=== PATIENT | female | born 1985 | race Asian ===

== ENCOUNTER → 2017-04-27 | Day surgery (SDC) | payer OTHER ==
[~2017-04-27] MED LIST: IRON325 MG
--- NOTE | ~2017-04-27 | OR ---
Unit #: [id number] #: [id number] Patient: RICKEY LOYA [id number] [facility]. [address] [place], [place] [address] [id number] O MR#: [id number] NAME: RICKEY LOYA ROOM: Date of Procedure: 04/27/2017 Admission Date: 04/27/2017 Surgeon: Taiwo Grimes Jr., M.D. : 1985 Attending Physician: Taiwo Grimes Jr., M.D. Primary Care Physician: Bartolo Rodriguez M.D. OPERATIVE REPORT INDICATION FOR THE PROCEDURE The patient is a 31-year-old white male, recently presented to the office complaining of a mass of the right upper medial thigh. This has been enlarging in size and he is concerned about it and desired removal of it. He is brought in at this time for removal of this under local anesthesia. He understands the procedure including the risks, including that of recurrence, infection, poor healing, and consents. PREOPERATIVE DIAGNOSIS Cyst of the right upper medial thigh. POSTOPERATIVE DIAGNOSIS Cyst of the right upper medial thigh, noting what appeared to be a ruptured epidermal cyst with chronic inflammation. ANESTHESIA 1% Xylocaine with epinephrine locally. PROCEDURE PERFORMED Excision of cystic mass of the right upper medial thigh. DESCRIPTION OF PROCEDURE The patient was positioned in supine position after being frog-legged, was prepped and draped in routine fashion for removal of the chronic inflamed cyst of the right upper medial thigh. The area was locally blocked with 1% Xylocaine with epinephrine and at this point, an elliptical incision was made with a #10 blade scalpel around the mass with being totally excised from the surrounding tissue. This was excised from down to the deeper subcutaneous tissue. After it was removed, it was sent to pathology. Hemostasis was achieved with Bovie cautery. The deeper tissue approximated with interrupted 3-0 Vicryl sutures. Skin edges approximated with stainless-steel skin clips and skin stapling device. Sterile dressings were applied externally. Estimated blood loss minimal, less than 20 mL. The patient received no fluids during the procedure. Sponges and instrument counts were correct x3. No drains used. No complications. The patient was taken to the discharge area with stable vital signs for discharge in satisfactory condition. Dictated by... Taiwo Grimes Jr., M.D. Unit #: [id number] #: [id number] Patient: RICKEY LOYA TOSHA/vi TD: 05/24/2017 20:38 JOB #: [id number] OPERATIVE REPORT Page 1 of 1 X Taiwo Grimes MD X PROCEDURE OPERATIVE NOTE
== END | disposition home or self-care (01) ==
LOC: CSUR 09:39
DX: L72.0 Epidermal cyst (principal); L08.9 Local infection of the skin and subcutaneous tissue, unspecified; R22.42 Localized swelling, mass and lump, left lower limb; Z90.49 Acquired absence of other specified parts of digestive tract; Z79.899 Other long term (current) drug therapy; Z79.1 Long term (current) use of non-steroidal anti-inflammatories (NSAID)
CPT/HCPCS: 84703; 88304

== ENCOUNTER 2017-05-02 19:16 | Emergency (ER) | payer OTHER ==
[~2017-05-02] VITALS: Ht 165.1 cm; Wt 76.2 kg
--- NOTE | ~2017-05-02 | CT4 ---
[facility] A Service of [facility] RADIOLOGY TEXT RESULTS PATIENT: RICKEY LOYA LOCATION: [facility] : [birth year] UNIT #: [id number] AGE: [address]: Dandre Ryder DO SEX: F ORDER DR: [id number] [facility] [address] [place], [place] [address] [id number] E MR#: [id number] Acc #: [id number] NAME: RICKEY LOYA : 1985 SEX: F STUDY DATE/TIME: 05/02/2017 22:22 UNIT: [facility] ROOM: STUDY DESCRIPTION: CT Abd and Pelv Wo Cont Attending Physician: Dandre Ryder D.O. Ordering Physician: Dandre Ryder D.O. Primary Care Physician: Bartolo Rodriguez M.D. MEDICAL IMAGING REPORT This report is preliminary unless electronic signature is present EXAM CT abdomen and pelvis without contrast HISTORY Abdomen pain and swelling today. This CT exam was performed with one or more of the following radiation dose reduction techniques: automatic exposure control, adjustment of mA and/or kV according to patient size, and iterative reconstruction. FINDINGS CT abdomen and pelvis was performed without contrast CT ABDOMEN: The liver, spleen, pancreas, kidneys, and adrenal glands are normal. Cholecystectomy. No bowel dilatation. Normal caliber abdominal aorta. No urinary calculi or obstruction. No ascites. CT PELVIS: Normal appendix. The uterus and adnexa are unremarkable. Moderate urinary bladder distension. No free fluid or inflammatory changes. IMPRESSION 1. No acute findings in the abdomen or pelvis. 2. No inflammatory changes or free fluid. 3. Normal appendix. 4. Cholecystectomy. Dictated by... Richard Bañuelos M.D. [facility] A Service of [facility] RADIOLOGY TEXT RESULTS PATIENT: RICKEY LOYA LOCATION: [facility] : 85 UNIT #: [id number] AGE: [address]: Dandre Ryder DO SEX: F ORDER DR: THIS IS AN ELECTRONICALLY VERIFIED REPORT Richard Bañuelos M.D. at 05/03/2017 6:27 PM TYE/chadd TD: 05/03/2017 05:28 JOB #: [id number] MEDICAL IMAGING REPORT Page 1 of 1 COPY
--- NOTE | ~2017-05-02 | US85 ---
[facility] A Service of [facility] RADIOLOGY TEXT RESULTS PATIENT: RICKEY LOYA LOCATION: [facility] : 85 UNIT #: [id number] AGE: [address]: Dandre Ryder DO SEX: F ORDER DR: [id number] [facility] [address] [place], [place] [address] [id number] E MR#: [id number] Acc #: [id number] NAME: RICKEY LOYA : 1985 SEX: F STUDY DATE/TIME: 05/02/2017 20:28 UNIT: [facility] ROOM: STUDY DESCRIPTION: [facility] Unil or [facility] Stdy Attending Physician: Dandre Ryder D.O. Ordering Physician: Dandre Ryder D.O. Primary Care Physician: Bartolo Rodriguez M.D. MEDICAL IMAGING REPORT This report is preliminary unless electronic signature is present EXAM Right lower extremity venous ultrasound HISTORY Right lower extremity pain for 1 week. TECHNIQUE Venous ultrasound examination of the right lower extremity was performed using grayscale, spectral Doppler and color flow Doppler imaging. FINDINGS The examination is negative. There is no evidence of right lower extremity deep venous thrombus from the groin to the lower calf. Visualized greater saphenous vein is also patent. IMPRESSION Negative examination. No evidence of right lower extremity deep venous thrombosis. Dictated by... Richard Bañuelos M.D. THIS IS AN ELECTRONICALLY VERIFIED REPORT Richard Bañuelos M.D. at 05/03/2017 6:25 PM TYE/chadd TD: 05/03/2017 02:35 JOB #: [id number] MEDICAL IMAGING REPORT [facility] A Service of [facility] RADIOLOGY TEXT RESULTS PATIENT: RICKEY LOYA LOCATION: [facility] : 85 UNIT #: [id number] AGE: [address]: Dander Ryder DO SEX: F ORDER DR: Page 1 of 1 COPY
[2017-05-02 20:16] LABS: URINE SOURCE CLEAN CATCH
[2017-05-02 20:18] LABS: BASOPHIL% 0.2 % (0-2.5); EOSINOPHIL# 0.1 X10e3 (0-0.7); EOSINOPHIL% 1.1 % (0.0-7.0); HEMATOCRIT 36.7 % (35.0-45.0); HEMOGLOBIN 12.2 gm/dL (12.0-16.0); LYMPHOCYTE# 2.1 X10e3 (1.0-3.5); LYMPHOCYTE% 33.7 % (17.0-45.0); MEAN CELL VOLUME 87.6 FL (83-96); MEAN CORPUSCULAR HEMOGLOBIN 29.1 PG (28-34); MEAN CORPUSCULAR HGB CONC 33.2 g/dL (30-36); MONOCYTE# 0.6 X10e3 (0-1.0); NEUTROPHIL# 3.5 X10e3 (1.5-7.1); PLATELET COUNT 306 X10e3 (140-420); RED BLOOD COUNT 4.19 X10e (3.90-5.30); WHITE BLOOD COUNT 6.3 X10e3 (4.0-10.5)
[2017-05-02 20:19] LABS: DIFF IND NO
[2017-05-02 20:37] LABS: BUN/CREATININE RATIO 12.85; CALCIUM SERUM 8.6 mg/dL (8.4-10.2); CREATININE SERUM 0.7 mg/dL (0.6-1.4); GLOM FILT RATE Estimated 115.5 mL/min (>60); POTASSIUM 3.7 mmol/L (3.5-5.1)
[2017-05-02 20:47] LABS: URINE APPEARANCE CLOUDY; URINE BILIRUBIN NEG (NEG); URINE BLOOD NEG (NEG); URINE COLOR YELLOW; URINE GLUCOSE NEG (NEG); URINE KETONE NEG (NEG); URINE LEUKOCYTE ESTERASE 3+ (NEG); URINE NITRATE POS (NEG); URINE PROTEIN NEG (NEG); URINE SPECIFIC GRAVITY 1.007 (1.003-1.035); URINE UROBILINOGEN 0.2 MG/DL (NEG)
[2017-05-02 20:50] LABS: CULTURE INDICATED? YES; U HYALINE CASTS AUWI 0-2 /[LPF]; URBCS1 AUWI 0-2 /[HPF] (0-2); URINE BACTERIA AUWI 4+ (NEGATIVE); URINE SQUAMOUS EPITHELIAL CELL OCC /[HPF]; UWBCS1 AUWI 25-50 (0-5)
== END 2017-05-03 00:45 | disposition home or self-care (01) ==
LOC: CED 19:16
PROVIDERS: Emergency Medicine
DX: T81.30XA Disruption of wound, unspecified, initial encounter (principal); N39.0 Urinary tract infection, site not specified; Z90.49 Acquired absence of other specified parts of digestive tract
CPT/HCPCS: 36415; 74176; 80048; 81003; 84703; 85025; 87086; 87088; 87186; 93971; 96374; 99284; J0696